=== PATIENT | female | born 1945 | race Caucasian/White ===

== ENCOUNTER → 2023-12-02 13:40 | Outpatient (REF) | payer MEDICARE, BC, SELFPAY ==
[2023-12-02 14:25] LABS: B.E. 2.6 mmol/L; HCO3 27.9 mmol/L (21-28); O2 Saturation % 96.6 % (94-98); PCO2 45 mmHg (32-35); PO2 75 mmHg (83-108)
== END ==
LOC: RSP 13:40
PROVIDERS: FAMILY PHYSICIAN Family Medicine
DX: G47.33 Obstructive sleep apnea (adult) (pediatric) (principal); E66.2 Morbid (severe) obesity with alveolar hypoventilation; I27.20 Pulmonary hypertension, unspecified
CPT/HCPCS: 36600; 82805

== ENCOUNTER → 2024-02-03 08:51 | Outpatient (REF) | payer MEDICARE, BC, SELFPAY | LOC: RSP 08:51 | PROVIDERS: ATTENDING PHYSICIAN Internal Medicine Pulmonary Disease | DX: G47.33 Obstructive sleep apnea (adult) (pediatric) (principal); E66.2 Morbid (severe) obesity with alveolar hypoventilation; I27.20 Pulmonary hypertension, unspecified | CPT/HCPCS: 94727; 94729; 88738; 94010 ==